=== PATIENT | female | born 1990 | race African-American/Black ===

== ENCOUNTER 2019-05-05 10:11 | Observation (INO) | payer MEDICAID ==
[~2019-05-05] VITALS: Ht 167.6 cm; Wt 98.4 kg
== END 2019-05-05 12:17 | disposition home or self-care (01) ==
LOC: 8 EST LDRP 10:11
PROVIDERS: ADMIT Obstetrics & Gynecology; ATTEND Obstetrics & Gynecology
DX: O62.9 Abnormality of forces of labor, unspecified (principal); Z3A.35 35 weeks gestation of pregnancy
CPT/HCPCS: 76815; 76818; 99281; G0378